=== PATIENT | male | born 1975 | race Native Hawaiian/Other Pacific Islander ===

== ENCOUNTER 2020-05-01 09:13 | Outpatient (CLI) | payer OTHER ==
[~2020-05-01 09:13] MED LIST: AMLO2.5T PO; COZAAR100 MG PO; PANT40TA PO; ZANTAC 75 PO
== END 2020-05-02 03:35 | disposition home or self-care (01) ==
LOC: RAD 09:13
DX: S61.431A Puncture wound without foreign body of right hand, initial encounter (principal)

== ENCOUNTER 2020-06-08 10:16 | Outpatient (CLI) | payer OTHER | END 2020-06-08 19:07 | disposition home or self-care (01) | LOC: RAD 10:16 | DX: Z03.89 Encounter for observation for other suspected diseases and conditions ruled out (principal) ==

== ENCOUNTER 2021-11-18 08:54 | Outpatient (CLI) | payer OTHER | END 2021-11-18 19:08 | disposition home or self-care (01) | LOC: US 08:54 | PROVIDERS: ATTEND Nurse Practitioner Family | DX: R74.01 Elevation of levels of liver transaminase levels (principal) ==